=== PATIENT | male | born 1970 | race Caucasian/White ===

== ENCOUNTER 2016-07-20 01:40 | Emergency (ER) | payer MEDICAID ==
[~2016-07-20] VITALS: Ht 180.3 cm; Wt 108.9 kg
[~2016-07-20 01:40] MED LIST: CELEXA20 MG PO; NORCO 10/325 MG1 TAB PO; NORVASC10 MG PO; SEROQUEL25 MG PO
[2016-07-20 01:47] VITALS: BP 141/79
--- NOTE | 2016-07-20 01:54 | NUR ---
PT TAKEN TO BED 4
--- NOTE | 2016-07-20 02:00 | NUR ---
PT 45/M BIB FAMILY TO ED WITH CO/ ETOH SINCE YESTERDAY, BOTH FEET SWELLING, FROM THE KNEE DOWN TO FOOT. PT STATES MED HX OF HTN. DENIES N/V/D; SKIN IS PINK/WARM/DRY; AAOX4 WITH EVEN AND STEADY GAIT; LUNGS CLEAR BL; HR EVEN AND REGULAR; PT DENIES ANY FEVER, CP, SOB, OR COUGH AT THIS TIME; PATIENT STATES PAIN OF 0/10 AT THIS TIME; VSS; PATIENT POSITIONED FOR COMFORT; HOB ELEVATED; BEDRAILS UP X2; BED DOWN. ER MD MADE AWARE OF PT STATUS.
--- NOTE | 2016-07-20 02:04 | NUR ---
Dr. Ly evaluating patient at bedside.
--- NOTE | 2016-07-20 02:46 | NUR ---
PT TAKEN TO CT
--- NOTE | 2016-07-20 02:55 | NUR ---
PT RETURN FROM CT
[2016-07-20 04:15] VITALS: BP 135/71
--- NOTE | 2016-07-20 04:15 | NUR ---
Patient discharged with v/s stable. Written and verbal after care instructions given and explained. Patient alert, oriented and verbalized understanding of instructions. Ambulatory with steady gait. All questions addressed prior to discharge. ID band removed. Patient advised to follow up with PMD. NO Rx WERE given. Patient educated on indication of medication including possible reaction and side effects. Opportunity to ask questions provided and answered. D/C BY DR ESCAMILLA
== END 2016-07-20 04:15 | disposition home or self-care (01) ==
LOC: MED 01:40
DX: K70.30 Alcoholic cirrhosis of liver without ascites (principal); R60.0 Localized edema; F10.129 Alcohol abuse with intoxication, unspecified; I10 Essential (primary) hypertension; Z88.0 Allergy status to penicillin
CPT/HCPCS: 36415; 74176; 80053; 81001; 82150; 83690; 85025; 99285; G0482